=== PATIENT | female | born 1940 | race Caucasian/White ===

== ENCOUNTER 2024-05-06 07:22 | Day surgery (SDC) | payer MEDICARE, OTHER ==
[2024-05-05 11:03] VITALS: BMI 25.0
[2024-05-06 09:23] LABS: Hematocrit 43.9 % (34.9-44.5)
[2024-05-06 09:29] LABS: Anion Gap 13 mmol/L (10-20); BUN (Urea Nitrogen) 23 mg/dL (9.8-20.1); Calc. Creatinine Clearance 49 mL/min (70-130); Calcium 9.3 mg/dL (7.8-10.44); Carbon Dioxide 29 mmol/L (23-31); Chloride 103 mmol/L (98-107); Estimated GFR 53; Glucose 93 mg/dL (83-110); Sodium 141 mmol/L (136-145)
[2024-05-06] MEDS ORDERED: Lidocaine 1% (PF) 30 ML VIAL ONE (09:47)
[2024-05-06] MEDS ORDERED: CEFAZOLIN 2 GM VIAL ONE (09:48)
[2024-05-06] MEDS ORDERED: EPINEPHrine 1 MG/ML VIAL ONE (09:48)
[2024-05-06] MEDS ORDERED: fentaNYL 50 mcg/mL 1 mL Vial ONE (09:58)
[2024-05-06] MEDS ORDERED: Rocuronium Bromide 10 MG/ML (10ML VIAL) ONE (09:58)
[2024-05-06] MEDS ORDERED: PROPOFOL 20 ML ONE (09:58)
[2024-05-06] MEDS ORDERED: SUGAMMADEX SODIUM 200 MG/2 ML VIAL ONE (09:58)
[2024-05-06] MEDS ORDERED: Ondansetron PF 4 MG/2 ML Vial ONE (09:58)
[2024-05-06] MEDS ORDERED: Dexamethasone 20 MG/5 ML VIAL ONE (09:58)
[2024-05-06] MEDS ORDERED: Lidocaine 1% PF 5 ML VIAL ONE (09:58)
[2024-05-06] MEDS ORDERED: PHENYLEPHRINE-NS 100 MCG/ML 10 ML SYRINGE ONE (10:22)
== END 2024-05-06 12:25 | disposition home or self-care (01) ==
LOC: CSHSDC 07:22
PROVIDERS: ATTEND Otolaryngology Otolaryngic Allergy
PROC: 07B20ZZ Excision of Left Neck Lymphatic, Open Approach (ICD-10-PCS; principal; 2024-05-06)
DX: C83.31 Diffuse large B-cell lymphoma, lymph nodes of head, face, and neck (principal); I10 Essential (primary) hypertension; I25.10 Atherosclerotic heart disease of native coronary artery without angina pectoris; F41.9 Anxiety disorder, unspecified; F32.A Depression, unspecified; E78.5 Hyperlipidemia, unspecified; Z79.82 Long term (current) use of aspirin; Z79.899 Other long term (current) drug therapy
CPT/HCPCS: 38510; 80048; 85014; 85018; J1100; J2001; J2405; J2704; J3010; 88184; 88307; 88341; 88342; 88360; 88365; J0171

== ENCOUNTER 2024-06-18 13:24 | Outpatient (CLI) | payer MEDICARE, OTHER ==
[2024-06-18 14:38] LABS: Hematocrit 38.8 % (34.9-44.5); Hemoglobin 12.6 g/dL (12.0-15.5); Mean Corpuscular HGB CONC 32.5 g/dL (32.0-36.0); Mean Corpuscular Hemoglobin 29.6 pg (27.0-33.0); Mean Corpuscular Volume 91.3 fL (81.6-98.3); Mean Platelet Volume 10.2 fL (7.4-10.4); Platelet Count 216 10x3/uL (150-450); RBC Distribution Width 13.8 % (11.5-14.5); Red Blood Cell (RBC) Count 4.25 10x6/uL (3.90-5.03); White Blood Cell (WBC) Count 5.1 10x3/uL (3.5-10.5)
[2024-06-18 14:50] LABS: Anion Gap 12 mmol/L (10-20); BUN (Urea Nitrogen) 26 mg/dL (9.8-20.1); Calc. Creatinine Clearance 0 mL/min (70-130); Calcium 9.3 mg/dL (7.8-10.44); Carbon Dioxide 30 mmol/L (23-31); Chloride 107 mmol/L (98-107); Estimated GFR 52; Glucose 112 mg/dL (83-110); Potassium 3.9 mmol/L (3.5-5.1); Sodium 145 mmol/L (136-145)
== END 2024-06-18 13:25 | disposition home or self-care (01) ==
LOC: CSHLAB 13:24
PROVIDERS: ATTEND Surgery
DX: Z01.818 Encounter for other preprocedural examination (principal); C83.31 Diffuse large B-cell lymphoma, lymph nodes of head, face, and neck
CPT/HCPCS: 80048; 85027; 93005; 93010

== ENCOUNTER 2024-06-20 05:43 | Day surgery (SDC) | payer MEDICARE, OTHER ==
[2024-06-18 13:44] VITALS: BMI 26.6
[2024-06-20] MEDS ORDERED: EPINEPHrine 1 MG/ML VIAL ONE (06:10)
[2024-06-20] MEDS ORDERED: Bupivacaine PF 0.5% 30 ML VIAL ONE (06:11)
[2024-06-20] MEDS ORDERED: CEFAZOLIN 2 GM VIAL ONE (06:43)
[2024-06-20] MEDS ORDERED: Lidocaine 2% PF 5 ML VIAL ONE (06:58)
[2024-06-20] MEDS ORDERED: PROPOFOL 20 ML ONE (06:58)
[2024-06-20] MEDS ORDERED: fentaNYL 50 mcg/mL 1 mL Vial ONE (07:06)
[2024-06-20] MEDS ORDERED: Ondansetron PF 4 MG/2 ML Vial ONE (07:07)
[2024-06-20] MEDS ORDERED: Dexamethasone 4 mg/ml Vial ONE (07:07)
== END 2024-06-20 08:40 | disposition home or self-care (01) ==
LOC: CSHSDC 05:43
PROVIDERS: ATTEND Surgery
PROC: 05HM33Z Insertion of Infusion Device into Right Internal Jugular Vein, Percutaneous Approach (ICD-10-PCS; principal; 2024-06-20)
DX: C83.31 Diffuse large B-cell lymphoma, lymph nodes of head, face, and neck (principal); I48.91 Unspecified atrial fibrillation; I10 Essential (primary) hypertension; E78.5 Hyperlipidemia, unspecified; K21.9 Gastro-esophageal reflux disease without esophagitis; Z79.82 Long term (current) use of aspirin; Z79.899 Other long term (current) drug therapy
CPT/HCPCS: 36561; C1788; J0171; J0665; J1100; J1642; J2001; J2405; J2704; J3010

== ENCOUNTER 2024-06-20 12:59 | Outpatient (CLI) | payer MEDICARE, OTHER | END 2024-06-20 13:00 | disposition home or self-care (01) | LOC: CSHULT 12:59 | PROVIDERS: ATTEND Internal Medicine Hematology & Oncology | DX: Z01.810 Encounter for preprocedural cardiovascular examination (principal); C83.31 Diffuse large B-cell lymphoma, lymph nodes of head, face, and neck; I42.7 Cardiomyopathy due to drug and external agent; Z79.899 Other long term (current) drug therapy; I51.9 Heart disease, unspecified; I51.7 Cardiomegaly; I27.20 Pulmonary hypertension, unspecified | CPT/HCPCS: 93306 ==